=== PATIENT | male | born 1990 | race Caucasian/White ===

== ENCOUNTER 2016-09-10 15:20 | Emergency (ER) | payer OTHER ==
[~2016-09-10] VITALS: Ht 177.8 cm; Wt 123.1 kg
[2016-09-10 15:24] VITALS: BP 130/81
[2016-09-10] MEDS ORDERED: LIDOCAINE 1%, 20ML ONE ×2 (15:42→16:01)
[2016-09-10] MEDS ORDERED: LIDOCAINE 1%, 20ML SQ ONE (16:00)
[2016-09-10] MEDS ORDERED: BACITRACIN ZINC OINT 500U/GM, 0.9 GM ONE (16:13)
== END 2016-09-10 16:22 | disposition home or self-care (01) ==
LOC: ED 16:10
DX: L60.0 Ingrowing nail (principal)
CPT/HCPCS: 11750; 99284

== ENCOUNTER 2018-01-04 08:51 | Emergency (ER) | payer OTHER ==
[~2018-01-04] VITALS: Ht 175.3 cm; Wt 96.0 kg
[2018-01-04 09:04] VITALS: BP 149/70
== END 2018-01-04 10:26 | disposition home or self-care (01) ==
LOC: ED 10:08
DX: N49.9 Inflammatory disorder of unspecified male genital organ (principal)
CPT/HCPCS: 99283

== ENCOUNTER 2018-02-03 07:07 | Emergency (ER) | payer OTHER ==
[~2018-02-03] VITALS: Ht 175.3 cm; Wt 95.7 kg
[2018-02-03] MEDS ORDERED: METHOCARBAMOL 750 MG TABLET PO ONE (07:30)
[2018-02-03] MEDS ORDERED: HYDROcodone/APAP 5/325 TABLET PO ONE (07:30)
[2018-02-03] MEDS ORDERED: HYDROcodone/APAP 5/325 TABLET ONE (07:37)
[2018-02-03] MEDS ORDERED: METHOCARBAMOL 750 MG TABLET ONE (07:59)
[2018-02-03 09:14] VITALS: BP 128/86
== END 2018-02-03 09:30 | disposition home or self-care (01) ==
LOC: ED 08:06
DX: S16.1XXA Strain of muscle, fascia and tendon at neck level, initial encounter (principal); F17.210 Nicotine dependence, cigarettes, uncomplicated; V49.59XA Passenger injured in collision with other motor vehicles in traffic accident, initial encounter; Y93.89 Activity, other specified; Y92.89 Other specified places as the place of occurrence of the external cause; Y99.8 Other external cause status
CPT/HCPCS: 72050; 72072; 99284

== ENCOUNTER 2018-02-06 07:09 | Emergency (ER) | payer OTHER ==
[~2018-02-06] VITALS: Ht 175.3 cm; Wt 95.0 kg
[2018-02-06 07:13] VITALS: BP 125/75
== END 2018-02-06 08:14 | disposition home or self-care (01) ==
LOC: ED 08:00
DX: S39.012A Strain of muscle, fascia and tendon of lower back, initial encounter (principal); V89.2XXA Person injured in unspecified motor-vehicle accident, traffic, initial encounter; Y93.89 Activity, other specified; Y92.89 Other specified places as the place of occurrence of the external cause; Y99.8 Other external cause status
CPT/HCPCS: 99281

== ENCOUNTER 2019-01-17 21:33 | Emergency (ER) | payer OTHER ==
[~2019-01-17] VITALS: Ht 177.8 cm; Wt 105.0 kg
[2019-01-17 21:38] VITALS: BP 134/85
== END 2019-01-17 23:18 | disposition home or self-care (01) ==
LOC: ED 22:17
DX: S62.336A Displaced fracture of neck of fifth metacarpal bone, right hand, initial encounter for closed fracture (principal); S62.326A Displaced fracture of shaft of fifth metacarpal bone, right hand, initial encounter for closed fracture; F17.210 Nicotine dependence, cigarettes, uncomplicated; W22.01XA Walked into wall, initial encounter; Y93.89 Activity, other specified; Y92.009 Unspecified place in unspecified non-institutional (private) residence as the place of occurrence of the external cause; Y99.8 Other external cause status
CPT/HCPCS: 29125; 99283